=== PATIENT | male | born 1995 | race Caucasian/White ===

== ENCOUNTER 2022-06-18 12:02 | Emergency (ER) | payer MEDICAID, OTHER ==
[~2022-06-18] VITALS: Ht 190.5 cm; Wt 141.0 kg
[2022-06-18 13:15] VITALS: BP 145/90
[2022-06-18] MEDS ORDERED: ACETAMINOPHEN/CODEINE#3 (300/30mg) TAB PO ONE (14:45)
[2022-06-18] MEDS ORDERED: ONDANSETRON ODT 4 MG TAB PO ONE (14:45)
[2022-06-18] MEDS ORDERED: CIPR1SUS8 OT (16:40)
[2022-06-18] MEDS ORDERED: ACE3T PO (16:40)
== END 2022-06-18 17:06 | disposition home or self-care (01) ==
LOC: ER 12:02
DX: H60.91 Unspecified otitis externa, right ear (principal); Z90.89 Acquired absence of other organs; Z79.2 Long term (current) use of antibiotics; Z79.899 Other long term (current) drug therapy
CPT/HCPCS: 99283; Q0162